=== PATIENT | male | born 1960 | race Caucasian/White ===

== ENCOUNTER 2019-01-03 14:06 | Emergency (ER) | payer SELFPAY ==
[~2019-01-03] VITALS: Ht 172.7 cm; Wt 86.0 kg
[2019-01-03] MEDS ORDERED: IBUPROFEN 800MG TABLET PO ONE (16:45)
[2019-01-03 17:14] VITALS: BP 138/76
== END 2019-01-03 17:07 | disposition home or self-care (01) ==
LOC: ER 14:06
DX: S80.02XA Contusion of left knee, initial encounter (principal); V43.52XA Car driver injured in collision with other type car in traffic accident, initial encounter; Y93.89 Activity, other specified; Y92.89 Other specified places as the place of occurrence of the external cause; Y99.8 Other external cause status
CPT/HCPCS: 99282